=== PATIENT | male | born 1955 | race Caucasian/White ===

== ENCOUNTER 2016-07-10 16:26 | Inpatient (IN) | payer OTHER ==
[~2016-07-10] VITALS: Ht 177.8 cm; Wt 184.6 kg
--- NOTE | ~2016-07-10 | HC ---
[facility] [place] [address] CONSULTATION Name: EDMOND EVANS Room #: 210-P ADM IN M.R.#: [id number] Admission: 07/10/16 Attend Phys: Uche Camarena MD Discharge: Date of : 55 Report #: [id number] THIS REPORT FOR: //name// CC: FAM unknown Gerardo Camarena PULMONARY CONSULTATION PRIMARY CARE PHYSICIAN: Jeremiah Chapa DO. REFERRING PHYSICIAN: Gerardo Asencio M.D. REASON FOR REFERRAL: Dyspnea and sleep apnea. HISTORY OF PRESENT ILLNESS: The patient is a 60-year-old male who was admitted for heart failure, dyspnea and sleep apnea. A pulmonary consultation was requested. The patient is known to this physician. He was initially seen in May of 2015. The patient has a complex medical history. Over the past year, he was seen at [facility]. 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 The patient also had encephalopathy along with seizure disorder and right optic neuropathy. The patient has been on chronic immunosuppression therapy for his granulomatosis and polyangiitis. He has been on chronic steroids. He also has sleep apnea. His initial sleep study performed about a year ago showed severe ELLIE, apnea-hypopnea index was 77 events per hour. He has been therapeutic on BiPAP at 20/15 cm/H2O with 3 liters of O2. His last sleep study was performed in April of 2016. This was a home sleep study that has efficacy of BiPAP therapy with. On his BiPAP, his apnea-hypopnea index was still abnormal at 15 events per hour. The patient was seen in the office yesterday with progressive dyspnea, dyspnea on exertion along with marked increasing lower extremity edema. He was vacationing in [place] for the past month. He notes that he has gained weight of more than 30-40 pounds. Otherwise, he denies any fever, night sweats, chills, chest pain or productive cough. PAST MEDICAL HISTORY: As mentioned above, including hypertension, allergic rhinitis, granulomatosis with polyangiitis, morbid obesity with a BMI of over 60, ELLIE, anxiety and depression, right optic neuropathy related to his [facility] [address] [place] [address] CONSULTATION Name: EDMOND EVANS Jahaira Room #: 210-P [facility] IN [facility]#: [id number] Admission: 07/10/16 Attend Phys: Uche Camarena MD Discharge: Date of : 55 Report #: [id number] granulomatosis with polyangiitis. PAST SURGICAL HISTORY: Remarkable for tonsillectomy as a childhood. ALLERGIES: None to medications. CURRENT MEDICATIONS: Include losartan/hydrochlorothiazide, meloxicam, prednisone 50 mg once a day, Lexapro 20 mg once a day, lorazepam, Fosamax, omeprazole and Vimpat. FAMILY HISTORY: Remarkable for multiple medical problems in the father, who . Mother at the age of 59 due to neoplasm, type unknown. SOCIAL HISTORY: The patient is . He has never smoked in his life. REVIEW OF SYSTEMS: As mentioned above. Otherwise, also remarkable for daytime fatigue and sleepiness despite BiPAP therapy. He has been easily fatigued. Lower extremity edema along with dyspnea on exertion and orthopnea, as mentioned above. PHYSICAL EXAMINATION: GENERAL: He is awake, alert, in mild respiratory distress. VITAL SIGNS: Temperature is 98.6 degrees Fahrenheit, pulse is 95, respiratory rate is 18, blood pressure is 140/84 mmHg and saturation 92%. HEENT: Normocephalic, atraumatic. NECK: Supple, without lymphadenopathy or thyromegaly. CHEST: Breath sounds are decreased bilaterally, with few scattered crackles in the bases. No wheezes. CARDIOVASCULAR: Heart sounds are distant. No obvious murmurs or gallops. Pulses are 2+/4 positive bilaterally. ABDOMEN: Morbidly obese, soft, nontender. No obvious masses felt. It is nontender. GENITOURINARY: Deferred. RECTAL: Deferred. EXTREMITIES: No cyanosis or clubbing, but remarkable for 4+/4+ bilateral pretibial edema. LABORATORY DATA: Portable chest x-ray pending. Echocardiogram, the study was suboptimal, but ejection fraction was normal at 55% to 60%, right ventricle size felt to be normal along with left atrium, left ventricle. Pulmonary artery pressure was not able to be measured. Electrolytes are normal, creatinine 1.0. WBC 10,900, hemoglobin is 12.3 and platelets are normal. Albumin 3.5. IMPRESSION: 1. Marked lower extremity edema in this 60-year-old morbidly obese male. He has severe obstructive sleep apnea and is currently on BiPAP. [facility] [address] [place] [address] CONSULTATION Name: EDMOND EVANS Room #: 210-P [facility] IN M.R.#: [id number] Admission: 07/10/16 Attend Phys: Uche Camarena MD Discharge: Date of : 55 Report #: [id number] the patient likely has right-sided heart failure. 2. Obstructive sleep apnea with recent weight again. His last home sleep study on BiPAP was subtherapeutic. He will need a re-titration BiPAP study as an outpatient when stable. We will also see if he can qualify for trilogy. 3. Heart failure, [id number] diastolic heart failure. Echocardiogram noted. 4. Morbid obesity. We had discussed in the past the importance of dietary and exercise program. 5. Granulomatosis with polyangiitis. In the past, his symptoms have been predominantly neurologic, including headaches, visual disturbance with right optic neuropathy and seizure disorder. 6. Anxiety and depression. RECOMMENDATIONS: Agree with aggressive diuresis. We will continue current BiPAP for now. We will try to see if we can get him in auto-titrating BIPAP while in the hospital. Clearly, a weight reduction program will be helpful, including possible bariatric surgery. DVT and GI prophylaxis are recommended. Thank you for this consultation. <ELECTRONICALLY SIGNED> By: Uche Camarena MD 07/12/16 1550 [id number] Uche Camarena MD /nt
--- NOTE | ~2016-07-10 | 2DMMODE ---
[facility] [place] [employer] [address] 2 D/M-MODE ECHOCARDIOGRAM Name: EDMOND EVANS Room #: 206-P ADM IN M.R.#: [id number] Admission: 07/10/16 Attend Phys: Uche Camarena MD Discharge: Date of : 55 Date of Service: 07/11/16 0917 Report #: [id number] THIS REPORT FOR: //name// APPROVED REPORT Study performed: 07/11/2016 08:35:50 EXAM: Comprehensive 2D, Doppler, and color-flow Echocardiogram Patient Location: Bedside Room #: 206 Blood Pressure: 142/61 mmHg HR: 86 bpm Other Information Study Quality: Technically Difficult Poor Indications Congestive Heart Failure Echo Enhancing Agent Indication: Endocardial border delineation Agent/Amount Used: Definity 2 cc Aortic Valve AoV Peak Matthew.: 1.36 m/s AO Peak Gr.: 7.42 mmHg LVOT Max P.55 mmHg LVOT Max V: 1.07 m/s Mitral Valve E/A Ratio: 1.1 MV Decel. Time: 195.61 ms MV E Max Matthew.: 0.71 m/s MV A Matthew.: 0.65 m/s MV PHT: 56.73 ms Pulmonary Valve PV Peak Matthew.: 1.11 m/s PV Peak Gr.: 4.94 mmHg Left Ventricle The left ventricle is normal size. Regional wall motion is not well visualized but grossly normal. There appears to be normal left ventricular wall thickness. The left ventricular systolic function is [facility] [address] [place] [address] 2 D/M-MODE ECHOCARDIOGRAM Name: EDMOND EVANS Room #: 206-P ADM IN M.R.#: [id number] Admission: 07/10/16 Attend Phys: Uche Camarena MD Discharge: Date of : 55 Date of Service: 07/11/16 0917 Report #: [id number] normal. The left ventricular ejection fraction is within the normal range. LVEF is 55-60%. Unable to assess Right Ventricle The right ventricle is normal size. The right ventricular systolic function is normal. Atria The left atrium size appears normal. The right atrium size appears normal. Aortic Valve The aortic valve is not well visualized. No aortic regurgitation is present. There is no aortic valvular stenosis. Mitral Valve Mitral valve is not well visualized. There is no mitral valve regurgitation noted. No evidence of mitral valve stenosis. Tricuspid Valve Tricuspid valve is not well visualized. There is no tricuspid valve regurgitation noted. Pulmonic Valve Pulmonic valve is not well visualized. There is no pulmonic valvular regurgitation. Great Vessels Aortic root is not well visualized. Pericardium There is no pericardial effusion. Further Testing Further Testing: Very limited study <Conclusion> The left ventricular systolic function is normal. LVEF 55-60%. Regional wall motion is not well visualized but grossly normal. The aortic valve is not well visualized. There is no aortic valvular stenosis or insufficiency. Mitral valve is not well visualized.There is no mitral valve regurgitation noted. [facility] [address] [place] [address] 2 D/M-MODE ECHOCARDIOGRAM Name: EDMOND EVANS Room #: 206-P ADM IN M.R.#: [id number] Admission: 07/10/16 Attend Phys: Uche Camarena MD Discharge: Date of : 55 Date of Service: 07/11/16916 Report #: [id number] Pulmonary artery pressure could not be ascertained. There is no pericardial effusion. <ELECTRONICALLY SIGNED> By: Prashanth Blevins MD, [facility] 07/11/16916 6 6 Prashanth Blevins MD, FAC /INF
[~2016-07-10 16:26] MED LIST: ZPAK PO
[2016-07-10 17:15] VITALS: BP 173/70
[2016-07-10] MEDS ORDERED: ATIVAN1 MG PO (17:41)
[2016-07-10] MEDS ORDERED: LEXAPRO20 MG PO (17:42)
[2016-07-10] MEDS ORDERED: PREDNISONE 10 M10 MG PO (17:42)
[2016-07-10] MEDS ORDERED: MOBIC15 MG PO (17:43)
[2016-07-10] MEDS ORDERED: OMEPRAZOLE 20 M20 M1 PO (17:44)
[2016-07-10] MEDS ORDERED: VIMPAT100 MG PO (17:44)
[2016-07-10] MEDS ORDERED: ALENDRONATE SOD70 MG PO (17:45)
[2016-07-10] MEDS ORDERED: NF (17:48)
[2016-07-10 18:29] LABS: HEMATOCRIT 36.6 % (42.0-52.0); HEMOGLOBIN 11.9 gm/dL (14.0-18.0); MCH 29.5 pg (26.0-34.0); MCHC 32.5 g/dL (28.0-37.0); MCV 90.8 fL (80.0-100.0); RBC 4.03 mil/uL (4.50-6.00); WBC 11.3 thou/uL (4.0-11.0)
[2016-07-10 18:37] LABS: CALCIUM 9.1 mg/dL (8.5-10.1); CREATININE 0.9 mg/dL (0.7-1.3); POTASSIUM 4.3 mmol/L (3.5-5.1)
[2016-07-10 18:42] LABS: ALBUMIN 3.5 g/dL (3.4-5.0); TOTAL BILIRUBIN 0.4 mg/dL (<0.1-1.0); TOTAL PROTEIN 6.9 g/dL (6.4-8.2)
[2016-07-10 19:01] LABS: NT-PRO BRAIN NAT PEPTIDE 105 pg/mL (<300); TROPONIN-I < 0.04 ng/mL (<0.04-0.07)
[2016-07-10 19:31] VITALS: BP 128/66
[2016-07-10] MEDS ORDERED: ABILIFY 2 MG2 M1 PO (21:18)
[2016-07-10] MEDS ORDERED: BACTRIM DS TAB1 EACH PO (21:23)
[2016-07-10] MEDS ORDERED: CALCIUM 600 +1 EAC1 PO (21:30)
[2016-07-11] VITALS (8 sets, daily range): BP systolic 106–155; BP diastolic 52–92
[2016-07-11 04:01] LABS: CALCIUM 9.4 mg/dL (8.5-10.1); POTASSIUM 3.7 mmol/L (3.5-5.1)
[2016-07-11 04:31] LABS: HEMATOCRIT 37.4 % (42.0-52.0); HEMOGLOBIN 12.3 gm/dL (14.0-18.0); MCHC 32.9 g/dL (28.0-37.0); MCV 91.4 fL (80.0-100.0); RBC 4.09 mil/uL (4.50-6.00); RDW 13.8 % (10.5-14.5); WBC 10.9 thou/uL (4.0-11.0)
[2016-07-11 17:55] LABS: ABG SAMPLE TYPE ARTERIAL; BE(vivo) 6.3 mmol/L (-2 to +3); HCO3 31.3 mmol/L (22.0-26.0); LACTATE 3.05 mmol/L (0.5-2.0); O2(CT) 17.4 mL/dL (15.0-23.0); O2Hb 94.1 % (92.0-98.0); PCO2 46.6 mmHg (35.0-45.0); PO2 77.2 mmHg (80.0-100.0); STICK SITE L.RADIAL; pH 7.445 (7.360-7.450); sO2 95.8 % (92.0-98.0); tCO2 32.7 mmol/L (24.0-30.0)
[2016-07-12 03:43] VITALS: BP 103/49
[2016-07-12 03:59] LABS: CALCIUM 9.5 mg/dL (8.5-10.1); CREATININE 1.4 mg/dL (0.7-1.3); POTASSIUM 3.1 mmol/L (3.5-5.1)
[2016-07-12 07:10] VITALS: BP 130/75
[2016-07-12 11:20] VITALS: BP 131/74
[2016-07-12 19:53] VITALS: BP 109/50
[2016-07-13 03:27] LABS: CREATININE 1.3 mg/dL (0.7-1.3); POTASSIUM 3.6 mmol/L (3.5-5.1)
[2016-07-13 05:14] VITALS: BP 115/49
[2016-07-13 07:05] VITALS: BP 128/57
[2016-07-13] MEDS ORDERED: SULFAMETHOXAZO1 EACH PO (10:41)
[2016-07-13] MEDS ORDERED: VIMPAT100 MG PO (10:41)
[2016-07-13] MEDS ORDERED: HYDROCODON-ACE1 EAC7 PO (10:41)
[2016-07-13] MEDS ORDERED: LASIX 40 MG TAB40 M2 PO (10:44)
[2016-07-13 10:48] VITALS: BP 128/57
[2016-07-13 11:38] VITALS: BP 128/57
== END 2016-07-13 11:30 | disposition home or self-care (01) | DRG 291 ==
LOC: 2N 16:26
PROVIDERS: Hospitalist; Internal Medicine Pulmonary Disease
DX: I13.0 Hypertensive heart and chronic kidney disease with heart failure and stage 1 through stage 4 chronic kidney disease, or unspecified chronic kidney disease (principal); G93.40 Encephalopathy, unspecified; I50.33 Acute on chronic diastolic (congestive) heart failure; M30.0 Polyarteritis nodosa; M31.30 Wegener's granulomatosis without renal involvement; Z68.43 Body mass index [BMI] 50.0-59.9, adult; N17.9 Acute kidney failure, unspecified; E87.70 Fluid overload, unspecified; E66.01 Morbid (severe) obesity due to excess calories; G47.33 Obstructive sleep apnea (adult) (pediatric); F32.9 Major depressive disorder, single episode, unspecified; F41.9 Anxiety disorder, unspecified; L92.9 Granulomatous disorder of the skin and subcutaneous tissue, unspecified; G40.909 Epilepsy, unspecified, not intractable, without status epilepticus; N18.9 Chronic kidney disease, unspecified; Z79.52 Long term (current) use of systemic steroids; Z79.899 Other long term (current) drug therapy
CPT/HCPCS: 10081

== ENCOUNTER → 2016-07-26 | Outpatient (CLI) | payer OTHER ==
[~2016-07-26] MED LIST changes: +ABILIFY 2 MG2 M1 PO; +ALENDRONATE SOD70 MG PO; +ATIVAN1 MG PO; +BACTRIM DS TAB1 EACH PO; +CALCIUM 600 +1 EAC1 PO; +HYDROCODON-ACE1 EAC7 PO; +LASIX 40 MG TAB40 M2 PO; +LEXAPRO20 MG PO; +MOBIC15 MG PO; +NF; +OMEPRAZOLE 20 M20 M1 PO; +PREDNISONE 10 M10 MG PO; +SULFAMETHOXAZO1 EACH PO; +VIMPAT100 MG PO
--- NOTE | ~2016-07-26 | SLE ---
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 The patient has gained weight, had been on CPAP. COMMENTS: The patient was started on BiPAP, IPAP at 12, EPAP of 6 and titrated to IPAP of 25, EPAP of 14 with 3 liters oxygen. At an IPAP of 23, EPAP of 14, the patient was seen for 35 minutes of which 30 minutes was in REM sleep. There were 25 hypopneas, apnea-hypopnea index of 42 events per sleep hour, low sat of 91%. At an IPAP of 24, EPAP of 14, the patient was seen for 31 minutes with 4 minutes of REM sleep. Apnea-hypopnea index of 0 events per sleep hour, low sat of 92%. The patient was not seen in supine REM sleep. IMPRESSION: 1. History of obstructive sleep apnea, G47.33. 2. A definite BiPAP setting was not established. 3. No significant arrhythmia noted. SUGGESTIONS: 1. The usual sleep apnea suggestions are recommended. 2. Weight loss and TSH if indicated. 3. Oral appliance or appropriate surgery may be considered with polysomnographic followup. 4. May consider a trial of BiPAP, IPAP at 24, EPAP of 14. May also consider an auto titrating BiPAP with minimum EPAP of 6, max EPAP of 14, minimum pressure support of 8. 5. During our study, an Jackie View full face mask was used, large with 3 liters oxygen. 6. If signs and symptoms not improved with therapy, further evaluation is recommended. By: [id number] Liam Dhaliwal MD /nt
== END ==
LOC: SLEEPLAB 07-12 11:06
DX: G47.33 Obstructive sleep apnea (adult) (pediatric) (principal)

== ENCOUNTER → 2019-05-14 | Outpatient (CLI) | payer OTHER | LOC: SJCVCIMAG | DX: I08.2 Rheumatic disorders of both aortic and tricuspid valves (principal); I50.9 Heart failure, unspecified; I27.81 Cor pulmonale (chronic) ==